=== PATIENT | female | born 1960 | race Caucasian/White ===

== ENCOUNTER 2020-02-10 10:34 | Day surgery (SDC) | payer BC, SELFPAY ==
[~2020-02-10] VITALS: Ht 172.7 cm; Wt 103.0 kg
[~2020-02-10 10:34] MED LIST: ACIPHEX PO; CEFAZOLIN SOD 2 GM in D5W 50 ML IV ONE; GLUXR500 PO; GLYB5TAB7 PO; METROPOLOL PO; SIMVASTATIN PO; TRIPILIX PO; VENL150C2 PO
[2020-02-10] MEDS ORDERED: METOCLOPRAMIDE HCL 10 MG/2 ML VIAL IVP ONE (13:20)
[2020-02-10] MEDS ORDERED: SEVOFLURANE 15 MIN GAS INH ONE (13:20)
[2020-02-10] MEDS ORDERED: TRANEXAMIC ACID 1,000 MG/10 ML VIAL IV ONE (13:20)
[2020-02-10] MEDS ORDERED: SUCCINYLCHOLINE CHLORIDE 20 MG/ML(QUELICIN) IVP ONE (13:20)
[2020-02-10] MEDS ORDERED: MIDAZOLAM HCL 5 MG/5 ML VIAL IVP ONE (13:20)
[2020-02-10] MEDS ORDERED: BUPIVACAINE /EPINEPHRINE/PF 0.25% 30 ML VIAL INJ ONE (13:20)
[2020-02-10] MEDS ORDERED: GLYCOPYRROLATE 0.2 MG/ML VIAL IJ ONE (13:20)
[2020-02-10] MEDS ORDERED: LIDOCAINE 1% 10 MG/ML, 20 ML MDV INJ ONE (13:20)
[2020-02-10] MEDS ORDERED: NEOSTIGMINE METHYLSULFATE 1 MG/ML, 10 ML VIAL IM ONE (13:20)
[2020-02-10] MEDS ORDERED: ONDANSETRON HCL 4 MG/2 ML VIAL IVP ONE (13:20)
[2020-02-10] MEDS ORDERED: PROPOFOL 200MG/ 20ML VIAL (DIPRIVAN) IV ONE (13:20)
[2020-02-10] MEDS ORDERED: fentaNYL CITRATE 250 MCG/5 ML AMP IV ONE (13:20)
[2020-02-10] MEDS ORDERED: hydrALAZINE HCL 20 MG/ML VIAL IVP PRN (14:30)
[2020-02-10] MEDS ORDERED: KETOROLAC TROMETHAMINE 30 MG VIAL IM PRN (14:30)
[2020-02-10] MEDS ORDERED: ONDANSETRON HCL 4 MG/2 ML VIAL IVP PRN (14:30)
[2020-02-10] MEDS ORDERED: POLYMYXIN 500,000/BACIT.10,000 UNITS in NS IRR 1 L IR ONE (14:36)
[2020-02-10 16:30] VITALS: BP_SYST 123
[2020-02-10] MEDS: HYDROmorphone 1 MG INJ. 1 MG/ML AMPUL IVP PRN ×3 (16:33→17:15)
[2020-02-10] MEDS ORDERED: ALBUTEROL SULFATE 0.083% 2.5 MG/3 ML VIAL.NEB INH ONE (16:45)
[2020-02-10] MEDS ORDERED: HYDROmorphone 1 MG INJ. 1 MG/ML AMPUL ONE ×2 (16:55→17:36)
== END 2020-02-10 20:30 | disposition home or self-care (01) ==
LOC: SDS 10:34
PROVIDERS: ATTEND Orthopaedic Surgery
DX: S42.201A Unspecified fracture of upper end of right humerus, initial encounter for closed fracture (principal); K21.9 Gastro-esophageal reflux disease without esophagitis; I12.9 Hypertensive chronic kidney disease with stage 1 through stage 4 chronic kidney disease, or unspecified chronic kidney disease; E11.22 Type 2 diabetes mellitus with diabetic chronic kidney disease; N18.4 Chronic kidney disease, stage 4 (severe); F32.9 Major depressive disorder, single episode, unspecified; F41.9 Anxiety disorder, unspecified; E78.5 Hyperlipidemia, unspecified; W19.XXXA Unspecified fall, initial encounter; Y93.89 Activity, other specified; Y92.89 Other specified places as the place of occurrence of the external cause; Y99.8 Other external cause status
CPT/HCPCS: 23615; 36415; 76000; 82962; 87426; C1713 ×4; J0330; J0690; J1170; J2001; J2405; J2704; J2710; J2765; J3010; J3490 ×3; J7060; J7120; J2250